=== PATIENT | male | born 2000 | race African-American/Black ===

== ENCOUNTER 2019-10-15 21:58 | Emergency (ER) | payer SELFPAY ==
[2019-10-15] MEDS ORDERED: Famotidine 20 MG/2 ML SDV ONE (22:00)
[2019-10-15] MEDS ORDERED: methylPREDNISolone Sodium Succinate 125 MG/2 ML SDV ONE (22:00)
[2019-10-15] MEDS ORDERED: EPINEPHrine 1 MG/ML SDV ONE (22:00)
[2019-10-15] MEDS ORDERED: diphenhydrAMINE 50 MG/ML SDV ONE (22:00)
[2019-10-15] MEDS ORDERED: diphenhydrAMINE 50 MG/ML SDV IVPUSH ONE (22:01)
[2019-10-15] MEDS ORDERED: EPINEPHrine 1 MG/ML SDV IM ONE (22:01)
[2019-10-15] MEDS ORDERED: Famotidine 20 MG/2 ML SDV IVPUSH ONE (22:01)
[2019-10-15] MEDS ORDERED: methylPREDNISolone Sodium Succinate 125 MG/2 ML SDV IV ONE (22:06)
--- NOTE | 2019-10-15 22:09 | EDM.PDOC ---
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 Patient states he was eating cashews prior to arrival and was having allergic reaction. Patient's chief complaint is allergic reaction. Patient reports feeling some scratchiness in his throat as well as some shortness of breath and nausea. Patient has no prior history of anaphylaxis. Patient did not take any medications prior to arrival. Duration of symptoms has been 20 to 30 minutes. Nothing makes symptoms better or worse. Pmhx: None Pshx: None Family Hx: noncontributory Smoking history? no Etoh use? none Drug use? none In addition to that documented in the HPI above, the additional ROS was obtained : Constitutional: Denies fevers or chills Eyes: Denies vision changes ENMT: Denies sore throat CV: Denies chest pain Resp: Per HPI GI: Denies vomiting or diarrhea : Denies painful urination MSK: Denies recent trauma Skin: Denies new rashes Neuro: Denies new numbness or tingling or weakness Endocrine: Denies unexpected weight loss Heme: Denies bleeding disorders I have reviewed the triage vital signs Const: In mild to moderate distress. well nourished, well developed, appears stated age Eyes: PERRL, no conjunctival injection HENT: No tongue swelling. No uvula swelling. NCAT, Neck supple without meningismus CV: RRR, Warm, well-perfused extremities RESP: Slight scattered wheezes, Unlabored respiratory effort GI: soft, non-tender, non-distended, no masses MSK: No gross deformities appreciated Skin: Warm, dry. 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 Sensation and motor function of extremities grossly intact. Psych: Appropriate mood and affect Assessment and plan: Patient is a 18-year-old male presenting with a chief complaint of allergic reaction. Signs and symptoms are consistent with anaphylactic reaction to likely not exposure. Patient required epinephrine steroids Benadryl. Patient demonstrated significant improvement with symptoms and has been resting comfortably in the emergency department since administration of medications. Patient has been sleep for the past 2 to 3 hours. Patient educated on anaphylaxis and use of EpiPen. Patient was prescribed an EpiPen. Patient instructed to follow-up with primary care physician for further allergy testing. All questions addressed and answered. Patient agrees with plan. - Related Data Allergies Allergy/AdvReac Type Severity Reaction Status Date / Time cashew nut Allergy Other Verified 10/15/19 22:01 Home Meds: Home Meds EPINEPHrine [Epipen 2-Aden] 0.3 mg IJ ONETIME PRN #1 ml 10/16/19 [Rx] ED ROS ALLERGIC REACTION - Review of Systems Review Of Systems: See Below ED EXAM GENERAL NO PERIP PULSE - Physical Exam Exam: See Below Course - Vital Signs Last Recorded V/S: Last Vital Signs Temp 36.3 C 10/15/19 22:08 Pulse 61 10/16/19 01:00 Resp 14 10/16/19 01:00 BP 131/59 L 10/16/19 01:00 Pulse Ox 96 10/16/19 01:00 - Orders/Labs/Meds Meds: Medications Discontinued Medications Generic Name Dose Route Start Last Admin Trade Name Freq PRN Reason Stop Dose Admin Diphenhydramine HCl 25 mg 10/15/19 22:01 10/15/19 22:00 Benadryl IVPUSH 10/15/19 22:02 25 mg ONETIME ONE Administration Diphenhydramine HCl Confirm 10/15/19 22:00 Benadryl Administered 10/15/19 22:01 Dose 50 mg .ROUTE .STK-MED ONE Epinephrine HCl 0.3 mg 10/15/19 22:01 10/15/19 22:00 Adrenalin IM 10/15/19 22:02 0.3 mg ONETIME ONE Administration Epinephrine HCl Confirm 10/15/19 22:00 Adrenalin Administered 10/15/19 22:01 Dose 1 mg .ROUTE .STK-MED ONE Famotidine 20 mg 10/15/19 22:01 10/15/19 22:05 Pepcid IVPUSH 10/15/19 22:02 20 mg ONETIME ONE Administration Famotidine Confirm 10/15/19 22:00 Pepcid Administered 10/15/19 22:01 Dose 20 mg .ROUTE .STK-MED ONE Ketorolac Tromethamine 15 mg 10/15/19 22:34 10/15/19 22:47 Toradol IVPUSH 10/15/19 22:35 15 mg ONETIME ONE Administration Methylprednisolone Sodium Succinate 125 mg 10/15/19 22:06 10/15/19 22:01 Solu-Medrol IV 10/15/19 22:07 125 mg ONETIME ONE Administration Methylprednisolone Sodium Succinate Confirm 10/15/19 22:00 Solu-Medrol Administered 10/15/19 22:01 Dose 125 mg .ROUTE .STK-MED ONE Ondansetron HCl 4 mg 10/15/19 22:10 10/15/19 22:10 Zofran IVPUSH 10/15/19 22:11 4 mg ONETIME ONE Administration Ondansetron HCl Confirm 10/15/19 22:11 Zofran Administered 10/15/19 22:12 Dose 4 mg .ROUTE .STK-MED ONE Departure - Departure Time of Disposition: 01:25 Disposition: Home, Self-Care 01 Clinical Impression: Anaphylaxis - Discharge Information Prescriptions: EPINEPHrine [Epipen 2-Aden] 0.3 mg IJ ONETIME PRN #1 ml PRN Reason: Other Referrals: PCP,None [Primary Care Provider] - Sepsis Event Note - Focused Exam Vital Signs: Vital Signs Temp Pulse Resp BP Pulse Ox 10/16/19 01:00 61 14 131/59 L 96 10/15/19 23:30 73 16 124/79 99 10/15/19 22:25 92 18 147/91 H 96 10/15/19 22:08 36.3 C 110 H 24 H 137/74 78 L Date Exam was Performed: 10/16/19 Time Exam was Performed: 01:24
[2019-10-15] MEDS ORDERED: Ondansetron 4 MG/2 ML SDV IVPUSH ONE (22:10)
[2019-10-15] MEDS ORDERED: Ondansetron 4 MG/2 ML SDV ONE (22:11)
[2019-10-15] MEDS ORDERED: Ketorolac 30 MG/ML SDV IVPUSH ONE (22:34)
== END 2019-10-16 02:11 | disposition home or self-care (01) ==
LOC: MW.ED 21:58
DX: T78.05XA Anaphylactic reaction due to tree nuts and seeds, initial encounter (principal)
CPT/HCPCS: 96372; 96374; 96375; 99283-25; J0171; J1200; J1885; J2405; J2930; J3490